=== PATIENT | female | born 1965 | race Caucasian/White ===

== ENCOUNTER 2022-03-08 08:40 | Inpatient (IN) | payer MEDICAID ==
[~2022-03-08] VITALS: Ht 177.8 cm; Wt 65.2 kg
[~2022-03-08 08:40] MED LIST: ALPR0.25 PO; CHOL20007 OR; CIME1TAB7 PO; DIGO0.12 PO; FERR-20 PO; FURO40TA4 PO; GABA300C10 PO; POTA-220 PO; POTA10TA51 PO; RIOC1TAB13 PO; WARF6TAB21 PO
[2022-03-08 09:41] LABS: Basophils # (auto) 0 10 ^3/uL (0-0.2); Eosinophils # (auto) 0 10 ^3/uL (0-0.8); Lymphocytes # (auto) 0.2 10 ^3/uL (0.4-5.4); Monocytes # (auto) 0.3 10 ^3/uL (0-1.3); Neutrophils # (auto) 2.1 10 ^3/uL (1.6-8.6); White Blood Cell 2.6 10^3/uL (4.4-10.8)
[2022-03-08 09:43] LABS: Eosinophils % (auto) 1.1 % (0.0-7.0); Hematocrit 39.7 % (36.0-46.0); Hemoglobin 13.2 g/dL (12.2-16.2); Lymphocytes % (auto) 6.5 % (10.0-50.0); Mean Corpuscular Hemoglobin 26.1 pg (28.0-32.0); Mean Corpuscular Hgb Conc. 33.3 g/dL (32.0-36.0); Mean Corpuscular Volume 78.3 fL (80.0-100.0); Monocytes % (auto) 10.8 % (0.0-12.0); Neutrophils % (auto) 80.6 % (37.0-80.0); Nucleated Red Blood Cells % 0.1 %; Red Blood Cells 5.07 10^6/uL (4.0-5.20); Red Cell Distribution Width 14.2 % (11.8-14.3)
[2022-03-08 10:01] LABS: Albumin 3.7 g/dL (3.4-5.0); Calcium 8.5 mg/dL (8.5-10.1); Magnesium 2.3 mg/dL (1.6-2.6); Potassium 3.6 mmol/L (3.5-5.1)
[2022-03-08 10:05] LABS: Bilirubin, Total 0.4 mg/dL (0.2-1.0); Total Protein 7.2 g/dL (6.4-8.2)
[2022-03-08] MEDS ORDERED: ACETAMINOPHEN 325 MG TAB PO ONE (11:30)
[2022-03-08] MEDS ORDERED: AZITHROMYCIN 250 MG TAB PO ONE (11:30)
[2022-03-08] MEDS ORDERED: DexAMETHasone SOD PHOS 10MG/1ML VIAL INJ IV ONE (11:30)
[2022-03-08] MEDS ORDERED: AMOXICILLIN/CLAVUL 875 MG TAB PO ONE (11:30)
[2022-03-08] MEDS ORDERED: MORPHINE SULFATE INJ 2 MG/ml SYRG IV PRN (13:45)
[2022-03-08] MEDS ORDERED: DOCUSATE SOD 100 MG CAP PO PRN (13:45)
[2022-03-08] MEDS ORDERED: NITROGLYCERIN 0.4 MG SL TAB SL PRN (13:45)
[2022-03-08] MEDS ORDERED: ONDANSETRON HCL 4 MG/2 ML VIAL IV PRN (13:45)
[2022-03-08] MEDS: SODIUM CHLOR 0.9% PF (SALINE LOCK) 10ML VIAL/SYR IV SCH ×2 (14:04→23:05)
[2022-03-08 14:18] LABS: INR 2.49 (0.9-1.15); Partial Thromboplastin Time 43.1 sec (24.6-33.4)
[2022-03-08] MEDS ORDERED: WARFARIN SODIUM 5 MG TAB PO ONE (17:00)
[2022-03-08] MEDS: ACETAMINOPHEN 325 MG TAB PO PRN (18:37)
[2022-03-08] MEDS ORDERED: SODIUM CHLORIDE 0.9% 250 ML IV ONE (20:45)
[2022-03-08] MEDS: RIOCIGUAT BASE PO SCH ×2 (22:00→23:05)
[2022-03-08] MEDS ORDERED: TADA20TA50 PO (23:12)
[2022-03-08] MEDS ORDERED: MACI1TAB2 PO (23:12)
[2022-03-09] MEDS: PHENYLEPHRINE IV 250 ML IV SCH ×3 (03:55→20:40)
[2022-03-09] MEDS: ACETAMINOPHEN 325 MG TAB PO PRN ×2 (04:07→13:51)
[2022-03-09] MEDS ORDERED: NOREPINEPHRINE 8 MG/250ML KIT 250 ML IV ONE (04:55)
[2022-03-09] MEDS: NOREPINEPHRINE 8 MG/250ML KIT 250 ML IV SCH (05:01)
[2022-03-09] MEDS: RIOCIGUAT BASE PO SCH ×3 (06:00→22:00)
[2022-03-09] MEDS: SODIUM CHLOR 0.9% PF (SALINE LOCK) 10ML VIAL/SYR IV SCH ×3 (06:09→22:09)
[2022-03-09 07:51] LABS: Hematocrit 40.1 % (36.0-46.0); Mean Corpuscular Hemoglobin 25.6 pg (28.0-32.0); Mean Corpuscular Hgb Conc. 32.4 g/dL (32.0-36.0); Red Blood Cells 5.08 10^6/uL (4.0-5.20); Red Cell Distribution Width 14.4 % (11.8-14.3); White Blood Cell 4.2 10^3/uL (4.4-10.8)
[2022-03-09 07:59] LABS: Band Neutrophils % (manual) 0; Basophils % (manual) 0 (0.0-2.0); Blast Cells 0; Eosinophils % (manual) 0 (0-7); Metamyelocytes % 0; Myelocytes % 0; Promyelocytes % 0; Reactive Lymphocytes 0
[2022-03-09 08:00] LABS: INR 2.91 (0.9-1.15); Partial Thromboplastin Time 45.2 sec (24.6-33.4)
[2022-03-09 08:03] LABS: Albumin 3.8 g/dL (3.4-5.0); BUN/Creatinine Ratio 24.3; Calcium 8.6 mg/dL (8.5-10.1); Potassium 3.6 mmol/L (3.5-5.1)
[2022-03-09 08:06] LABS: Bilirubin, Total 0.4 mg/dL (0.2-1.0); Total Protein 6.8 g/dL (6.4-8.2)
[2022-03-09 08:41] LABS: Lymphocytes % (manual) 17 (10.0-50.0); Monocytes % (manual) 13 (0-12)
[2022-03-09] MEDS: DOPamine 1600MCG/ML D5W 250 ML IV SCH (09:09)
[2022-03-09] MEDS: DIGOXIN 0.125 MG TAB PO SCH (09:22)
[2022-03-09] MEDS: AZITHROMYCIN 500MG/ 250ML 250 ML IV SCH (10:49)
[2022-03-09] MEDS ORDERED: SODIUM CHLORIDE 0.9% 1,000 ML IV ONE (13:00)
[2022-03-09] MEDS ORDERED: cefTRIAXone 1GM/50ML D5W 50 ML IV ONE (13:00)
[2022-03-09 13:45] LABS: Urine Bacteria NONE SEEN /hpf (None Seen); Urine Blood Negative /uL (Negative); Urine Hyaline Cast FEW /lpf (0 - 2); Urine Mucus FEW (None Seen); Urine Specific Gravity 1.031 (1.001-1.035); Urine WBC 1 /hpf (0 - 5)
[2022-03-09 13:51] LABS: Creatinine, Urine 195 mg/dL (30.0-125.0); Sodium Urine < 5 mmol/L (40-220)
[2022-03-09] MEDS ORDERED: WARFARIN SODIUM 2 MG TAB PO ONE (17:00)
[2022-03-10] VITALS (25 sets, daily range): BP systolic 80–139; BP diastolic 46–68
[2022-03-10] MEDS: PHENYLEPHRINE IV 250 ML IV SCH ×2 (05:00→13:20)
[2022-03-10] MEDS: RIOCIGUAT BASE PO SCH ×3 (06:00→21:03)
[2022-03-10 06:16] LABS: Basophils # (auto) 0 10 ^3/uL (0-0.2); Basophils % (auto) 0.3 % (0.0-2.0); Eosinophils # (auto) 0 10 ^3/uL (0-0.8); Eosinophils % (auto) 0.1 % (0.0-7.0); Hematocrit 37.1 % (36.0-46.0); Lymphocytes # (auto) 0.5 10 ^3/uL (0.4-5.4); Mean Corpuscular Hemoglobin 25.8 pg (28.0-32.0); Monocytes # (auto) 0.3 10 ^3/uL (0-1.3); Monocytes % (auto) 8.4 % (0.0-12.0); White Blood Cell 3.9 10^3/uL (4.4-10.8)
[2022-03-10 06:18] LABS: Hemoglobin 12.2 g/dL (12.2-16.2); Lymphocytes % (auto) 12.4 % (10.0-50.0); Mean Corpuscular Hgb Conc. 32.9 g/dL (32.0-36.0); Mean Corpuscular Volume 78.4 fL (80.0-100.0); Neutrophils # (auto) 3.1 10 ^3/uL (1.6-8.6); Neutrophils % (auto) 78.8 % (37.0-80.0); Nucleated Red Blood Cells % 0.2 %; Red Blood Cells 4.74 10^6/uL (4.0-5.20); Red Cell Distribution Width 14.4 % (11.8-14.3)
[2022-03-10 06:27] LABS: INR 3.22 (0.9-1.15); Partial Thromboplastin Time 47.3 sec (24.6-33.4)
[2022-03-10] MEDS: NOREPINEPHRINE 8 MG/250ML KIT 250 ML IV SCH ×2 (06:30→07:46)
[2022-03-10] MEDS: SODIUM CHLOR 0.9% PF (SALINE LOCK) 10ML VIAL/SYR IV SCH ×3 (06:31→21:03)
[2022-03-10 06:32] LABS: Calcium 7.5 mg/dL (8.5-10.1); Magnesium 1.9 mg/dL (1.6-2.6); Phosphorus 2.2 mg/dL (2.5-4.90); Potassium 3.9 mmol/L (3.5-5.1)
[2022-03-10] MEDS: DOPamine 1600MCG/ML D5W 250 ML IV SCH ×2 (07:15→22:35)
[2022-03-10] MEDS: cefTRIAXone 1GM/50ML D5W 50 ML IV SCH (09:25)
[2022-03-10] MEDS: DIGOXIN 0.125 MG TAB PO SCH (09:27)
[2022-03-10] MEDS: ACETAMINOPHEN 325 MG TAB PO PRN ×2 (09:28→19:49)
[2022-03-10] MEDS: AZITHROMYCIN 500MG/ 250ML 250 ML IV SCH (09:46)
[2022-03-11] VITALS (88 sets, daily range): BP systolic 80–130; BP diastolic 37–89
[2022-03-11 04:16] LABS: Basophils # (auto) 0 10 ^3/uL (0-0.2); Basophils % (auto) 0.4 % (0.0-2.0); Eosinophils # (auto) 0 10 ^3/uL (0-0.8); Eosinophils % (auto) 0.1 % (0.0-7.0); Hemoglobin 12.9 g/dL (12.2-16.2); Lymphocytes # (auto) 0.9 10 ^3/uL (0.4-5.4); Monocytes # (auto) 0.5 10 ^3/uL (0-1.3)
[2022-03-11 04:18] LABS: Hematocrit 39.4 % (36.0-46.0); Mean Corpuscular Hemoglobin 25.9 pg (28.0-32.0); Mean Corpuscular Hgb Conc. 32.8 g/dL (32.0-36.0); Mean Corpuscular Volume 78.9 fL (80.0-100.0); Monocytes % (auto) 14.2 % (0.0-12.0); Neutrophils # (auto) 2.2 10 ^3/uL (1.6-8.6); Neutrophils % (auto) 61.3 % (37.0-80.0); Nucleated Red Blood Cells % 0.2 %; Red Blood Cells 4.99 10^6/uL (4.0-5.20); Red Cell Distribution Width 14.7 % (11.8-14.3); White Blood Cell 3.6 10^3/uL (4.4-10.8)
[2022-03-11 04:30] LABS: INR 2.36 (0.9-1.15)
[2022-03-11 04:34] LABS: BUN/Creatinine Ratio 17.3; Potassium 3.8 mmol/L (3.5-5.1)
[2022-03-11] MEDS: RIOCIGUAT BASE PO SCH ×3 (06:00→21:48)
[2022-03-11] MEDS: SODIUM CHLOR 0.9% PF (SALINE LOCK) 10ML VIAL/SYR IV SCH ×3 (06:25→21:48)
[2022-03-11] MEDS: DOPamine 1600MCG/ML D5W 250 ML IV SCH ×2 (08:00→20:00)
[2022-03-11] MEDS: PHENYLEPHRINE IV 250 ML IV SCH ×3 (08:05→16:23)
[2022-03-11] MEDS: cefTRIAXone 1GM/50ML D5W 50 ML IV SCH (09:14)
[2022-03-11] MEDS: AZITHROMYCIN 500MG/ 250ML 250 ML IV SCH (10:09)
[2022-03-11] MEDS ORDERED: WARFARIN SODIUM 1 MG TAB PO ONE (17:00)
[2022-03-11] MEDS: NOREPINEPHRINE 8 MG/250ML KIT 250 ML IV SCH (21:00)
[2022-03-12] VITALS (82 sets, daily range): BP systolic 81–122; BP diastolic 43–78
[2022-03-12 04:17] LABS: Basophils # (auto) 0 10 ^3/uL (0-0.2); Eosinophils # (auto) 0 10 ^3/uL (0-0.8); Hemoglobin 12.8 g/dL (12.2-16.2); Lymphocytes # (auto) 0.7 10 ^3/uL (0.4-5.4); Mean Corpuscular Hemoglobin 26.1 pg (28.0-32.0); Mean Corpuscular Hgb Conc. 33.1 g/dL (32.0-36.0); Monocytes # (auto) 0.3 10 ^3/uL (0-1.3); Neutrophils # (auto) 1.9 10 ^3/uL (1.6-8.6); Nucleated Red Blood Cells % 0.1 %; White Blood Cell 2.9 10^3/uL (4.4-10.8)
[2022-03-12 04:19] LABS: Basophils % (auto) 0.3 % (0.0-2.0); Eosinophils % (auto) 0.7 % (0.0-7.0); Hematocrit 38.5 % (36.0-46.0); Lymphocytes % (auto) 23.4 % (10.0-50.0); Mean Corpuscular Volume 78.7 fL (80.0-100.0); Monocytes % (auto) 10.6 % (0.0-12.0); Red Cell Distribution Width 14.3 % (11.8-14.3)
[2022-03-12 05:08] LABS: INR 1.77 (0.9-1.15); Partial Thromboplastin Time 43.5 sec (24.6-33.4)
[2022-03-12 05:13] LABS: Calcium 7.7 mg/dL (8.5-10.1); Potassium 3.6 mmol/L (3.5-5.1)
[2022-03-12] MEDS: RIOCIGUAT BASE PO SCH (06:00)
[2022-03-12] MEDS: SODIUM CHLOR 0.9% PF (SALINE LOCK) 10ML VIAL/SYR IV SCH ×3 (06:12→22:00)
[2022-03-12] MEDS: cefTRIAXone 1GM/50ML D5W 50 ML IV SCH (08:56)
[2022-03-12] MEDS: AZITHROMYCIN 500MG/ 250ML 250 ML IV SCH ×2 (10:00→10:59)
[2022-03-12] MEDS: ACETAMINOPHEN 325 MG TAB PO PRN (12:42)
[2022-03-12] MEDS ORDERED: TADALAFIL 20 MG PO SCH (14:00)
[2022-03-12] MEDS ORDERED: OPSUMIT 10 MG PO SCH (14:00)
[2022-03-12] MEDS ORDERED: ALBUMIN 5% 250 ML IV ONE (14:15)
[2022-03-12] MEDS ORDERED: WARFARIN SODIUM 1 MG TAB PO ONE (17:00)
[2022-03-12] MEDS ORDERED: VANCOMYCIN PER PHARMACY 0 MG IV SCH (17:15)
[2022-03-12] MEDS: VANCOMYCIN 1GM/250ML 250 ML IV SCH (18:14)
[2022-03-12] MEDS: DOPamine 1600MCG/ML D5W 250 ML IV SCH (20:00)
[2022-03-12] MEDS ORDERED: APIXABAN 5 MG TAB PO SCH ×2 (22:00)
[2022-03-12] MEDS: APIXABAN 5 MG TAB PO SCH (22:00)
[2022-03-13] VITALS (79 sets, daily range): BP systolic 82–120; BP diastolic 44–80
[2022-03-13] MEDS: VANCOMYCIN 1GM/250ML 250 ML IV SCH ×2 (04:00→14:03)
[2022-03-13 04:25] LABS: Calcium 8.1 mg/dL (8.5-10.1); Potassium 3.9 mmol/L (3.5-5.1)
[2022-03-13 04:27] LABS: INR 1.52 (0.9-1.15); Partial Thromboplastin Time 44.1 sec (24.6-33.4)
[2022-03-13 04:28] LABS: BUN/Creatinine Ratio 21.3
[2022-03-13] MEDS: NOREPINEPHRINE 8 MG/250ML KIT 250 ML IV SCH (05:20)
[2022-03-13] MEDS: SODIUM CHLOR 0.9% PF (SALINE LOCK) 10ML VIAL/SYR IV SCH ×3 (06:00→22:59)
[2022-03-13] MEDS: PHENYLEPHRINE IV 250 ML IV SCH ×2 (07:46→14:03)
[2022-03-13] MEDS: cefTRIAXone 1GM/50ML D5W 50 ML IV SCH (09:23)
[2022-03-13] MEDS: APIXABAN 5 MG TAB PO SCH (09:24)
[2022-03-13] MEDS ORDERED: CHOLECALCIFEROL (VITD3) 2,000 UNIT CAP/TAB PO ONE (12:15)
[2022-03-13] MEDS: DOPamine 1600MCG/ML D5W 250 ML IV SCH (21:50)
[2022-03-13] MEDS: ENOXAPARIN SOD 60 MG/0.6 ML SYRINGE SC SCH (22:00)
[2022-03-13] MEDS: ATORVASTATIN 20 MG TAB PO SCH (22:59)
[2022-03-14] VITALS (70 sets, daily range): BP systolic 84–119; BP diastolic 43–67
[2022-03-14] MEDS: PHENYLEPHRINE IV 250 ML IV SCH ×2 (00:40→09:00)
[2022-03-14 03:48] LABS: BUN/Creatinine Ratio 24.7; Calcium 8.2 mg/dL (8.5-10.1); Potassium 4.1 mmol/L (3.5-5.1)
[2022-03-14] MEDS: NOREPINEPHRINE 8 MG/250ML KIT 250 ML IV SCH (05:00)
[2022-03-14] MEDS: SODIUM CHLOR 0.9% PF (SALINE LOCK) 10ML VIAL/SYR IV SCH ×3 (06:00→21:47)
[2022-03-14] MEDS: ENOXAPARIN SOD 60 MG/0.6 ML SYRINGE SC SCH (10:00)
[2022-03-14] MEDS: cefTRIAXone 1GM/50ML D5W 50 ML IV SCH (10:28)
[2022-03-14] MEDS: VANCOMYCIN 1GM/250ML 250 ML IV SCH ×2 (10:30)
[2022-03-14] MEDS: CHOLECALCIFEROL (VITD3) 2,000 UNIT CAP/TAB PO SCH (10:30)
[2022-03-14] MEDS: ATORVASTATIN 20 MG TAB PO SCH (21:47)
[2022-03-15] VITALS (75 sets, daily range): BP systolic 80–129; BP diastolic 28–82
[2022-03-15] MEDS: PHENYLEPHRINE IV 250 ML IV SCH ×4 (01:40→18:20)
[2022-03-15 04:00] LABS: Basophils # (auto) 0 10 ^3/uL (0-0.2); Basophils % (auto) 0.5 % (0.0-2.0); Eosinophils # (auto) 0.1 10 ^3/uL (0-0.8); Eosinophils % (auto) 6.4 % (0.0-7.0); Hemoglobin 13.1 g/dL (12.2-16.2); Lymphocytes # (auto) 0.8 10 ^3/uL (0.4-5.4); Lymphocytes % (auto) 35.9 % (10.0-50.0); Mean Corpuscular Hemoglobin 25.6 pg (28.0-32.0); Mean Corpuscular Hgb Conc. 32.8 g/dL (32.0-36.0); Mean Corpuscular Volume 78.1 fL (80.0-100.0); Monocytes # (auto) 0.4 10 ^3/uL (0-1.3); Monocytes % (auto) 16.2 % (0.0-12.0); Neutrophils # (auto) 0.9 10 ^3/uL (1.6-8.6); Nucleated Red Blood Cells % 0.1 %; Red Blood Cells 5.12 10^6/uL (4.0-5.20); Red Cell Distribution Width 14.2 % (11.8-14.3); White Blood Cell 2.3 10^3/uL (4.4-10.8)
[2022-03-15 04:19] LABS: BUN/Creatinine Ratio 27.4; Calcium 8.3 mg/dL (8.5-10.1)
[2022-03-15] MEDS: NOREPINEPHRINE 8 MG/250ML KIT 250 ML IV SCH (05:00)
[2022-03-15] MEDS: SODIUM CHLOR 0.9% PF (SALINE LOCK) 10ML VIAL/SYR IV SCH ×3 (06:00→22:00)
[2022-03-15] MEDS: cefTRIAXone 1GM/50ML D5W 50 ML IV SCH (09:34)
[2022-03-15] MEDS: DOPamine 1600MCG/ML D5W 250 ML IV SCH (09:34)
[2022-03-15] MEDS: CHOLECALCIFEROL (VITD3) 2,000 UNIT CAP/TAB PO SCH (09:35)
[2022-03-15] MEDS ORDERED: fentaNYL CITRATE 100 MCG/2 ML VL ONE (12:57)
[2022-03-15] MEDS ORDERED: VANCOMYCIN HCL 1000 MG VL ONE (12:57)
[2022-03-15] MEDS ORDERED: MIDAZOLAM HCL 2MG/2ML 2ml VIAL (1mg/ml) ONE (12:58)
[2022-03-15] MEDS ORDERED: LIDOCAINE 2%HCL (LOCAL ANESTH.) INJ 20ML MDV ONE ×2 (12:58→13:46)
[2022-03-15] MEDS ORDERED: VANCOMYCIN 1GM/250ML 250 ML IV ONE (12:58)
[2022-03-15] MEDS ORDERED: DexAMETHasone SOD PHOS 10MG/1ML VIAL INJ IV ONE (14:15)
[2022-03-15] MEDS: ATORVASTATIN 20 MG TAB PO SCH (22:00)
[2022-03-16] VITALS (39 sets, daily range): BP systolic 75–114; BP diastolic 40–75
[2022-03-16] MEDS: PHENYLEPHRINE IV 250 ML IV SCH ×2 (02:40→11:00)
[2022-03-16 04:34] LABS: Basophils # (auto) 0 10 ^3/uL (0-0.2); Basophils % (auto) 0.2 % (0.0-2.0); Eosinophils # (auto) 0 10 ^3/uL (0-0.8); Eosinophils % (auto) 0.1 % (0.0-7.0); Hematocrit 39.6 % (36.0-46.0); Hemoglobin 12.9 g/dL (12.2-16.2); Lymphocytes # (auto) 0.4 10 ^3/uL (0.4-5.4); Lymphocytes % (auto) 19.7 % (10.0-50.0); Mean Corpuscular Hemoglobin 25.4 pg (28.0-32.0); Mean Corpuscular Hgb Conc. 32.6 g/dL (32.0-36.0); Monocytes # (auto) 0.2 10 ^3/uL (0-1.3); Monocytes % (auto) 10.9 % (0.0-12.0); Neutrophils # (auto) 1.4 10 ^3/uL (1.6-8.6); Neutrophils % (auto) 69.1 % (37.0-80.0); Nucleated Red Blood Cells % 0.4 %; Red Blood Cells 5.07 10^6/uL (4.0-5.20); Red Cell Distribution Width 13.8 % (11.8-14.3); White Blood Cell 2.1 10^3/uL (4.4-10.8)
[2022-03-16 04:50] LABS: Calcium 8.7 mg/dL (8.5-10.1); Potassium 4.1 mmol/L (3.5-5.1)
[2022-03-16] MEDS: SODIUM CHLOR 0.9% PF (SALINE LOCK) 10ML VIAL/SYR IV SCH ×2 (05:45→13:47)
[2022-03-16] MEDS ORDERED: DexAMETHasone SOD PHOS 10MG/1ML VIAL INJ IV SCH (10:00)
[2022-03-16] MEDS: CHOLECALCIFEROL (VITD3) 2,000 UNIT CAP/TAB PO SCH (10:46)
[2022-03-16] MEDS: cefTRIAXone 1GM/50ML D5W 50 ML IV SCH (10:48)
[2022-03-16] MEDS ORDERED: DEX4T PO (11:14)
[2022-03-16] MEDS ORDERED: APIX5TAB PO (11:14)
[2022-03-16] MEDS ORDERED: LEVO750T64 PO (11:23)
[2022-03-16] MEDS ORDERED: APIXABAN 5 MG TAB PO SCH (22:00)
== END 2022-03-16 15:24 | disposition home or self-care (01) | DRG 710 ==
LOC: EDBD 08:40 → ER 08:40 → TELE 13:41 → TELE-WESTW 23:28 → TELE 03-09 00:36 → ICU WEST 03-10 16:48
PROVIDERS: ADMIT Nurse Practitioner Family; ATTEND Internal Medicine Pulmonary Disease
PROC: 02HK3JZ Insertion of Pacemaker Lead into Right Ventricle, Percutaneous Approach (ICD-10-PCS; principal; 2022-03-15)
PROC: 0JH606Z Insertion of Pacemaker, Dual Chamber into Chest Subcutaneous Tissue and Fascia, Open Approach (ICD-10-PCS; 2022-03-15)
PROC: 02H63JZ Insertion of Pacemaker Lead into Right Atrium, Percutaneous Approach (ICD-10-PCS; 2022-03-15)
DX: A41.89 Other specified sepsis (principal); J96.01 Acute respiratory failure with hypoxia; J12.82 Pneumonia due to coronavirus disease 2019; R65.21 Severe sepsis with septic shock; U07.1 COVID-19; D70.9 Neutropenia, unspecified; I13.0 Hypertensive heart and chronic kidney disease with heart failure and stage 1 through stage 4 chronic kidney disease, or unspecified chronic kidney disease; I50.9 Heart failure, unspecified; E87.2 Acidosis; I27.20 Pulmonary hypertension, unspecified; N17.9 Acute kidney failure, unspecified; I49.5 Sick sinus syndrome; B34.9 Viral infection, unspecified; I48.91 Unspecified atrial fibrillation; J98.4 Other disorders of lung; N18.31 Chronic kidney disease, stage 3a; I31.3 Pericardial effusion (noninflammatory); Z79.899 Other long term (current) drug therapy; Z83.3 Family history of diabetes mellitus; Z86.711 Personal history of pulmonary embolism; Z95.0 Presence of cardiac pacemaker; Z90.49 Acquired absence of other specified parts of digestive tract
CPT/HCPCS: 33208; 36415; 36600; 71045; 71250; 76775; 80048; 80053; 80162; 80202; 81001; 82533; 82570; 82805; 83735; 83880; 84100; 84156; 84300; 84439; 84443; 84484; 85007; 85025; 85027; 85379; 85610; 85730; 86141; 86850; 86900; 86901; 87040; 87070; 87077; 87081; 87186; 87205; 93005; 93306; 96361; 96374; 99152; 99153; C1785; G0378; J0696; J1100; J2250

== ENCOUNTER 2022-08-22 17:56 | Emergency (ER) | payer MEDICAID ==
[~2022-08-22] VITALS: Ht 165.1 cm; Wt 59.0 kg
[~2022-08-22 17:56] MED LIST changes: -ALPR0.25 PO; +APIX5TAB PO; -CIME1TAB7 PO; +DEX4T PO; -GABA300C10 PO; +LEVO750T64 PO; +MACI1TAB2 PO; -POTA10TA51 PO; +TADA20TA50 PO; -WARF6TAB21 PO
[2022-08-22 21:21] LABS: Basophils # (auto) 0 10 ^3/uL (0-0.2); Basophils % (auto) 0.9 % (0.0-2.0); Eosinophils # (auto) 0.2 10 ^3/uL (0-0.8); Hematocrit 40.8 % (36.0-46.0); Hemoglobin 13.5 g/dL (12.2-16.2); Lymphocytes # (auto) 1.3 10 ^3/uL (0.4-5.4); Lymphocytes % (auto) 27.5 % (10.0-50.0); Mean Corpuscular Hemoglobin 25.7 pg (28.0-32.0); Mean Corpuscular Hgb Conc. 33.1 g/dL (32.0-36.0); Mean Corpuscular Volume 77.7 fL (80.0-100.0); Monocytes # (auto) 0.3 10 ^3/uL (0-1.3); Monocytes % (auto) 5.7 % (0.0-12.0); Neutrophils % (auto) 60.9 % (37.0-80.0); Nucleated Red Blood Cells % 0.2 %; Red Blood Cells 5.25 10^6/uL (4.0-5.20); Red Cell Distribution Width 14.8 % (11.8-14.3); White Blood Cell 4.9 10^3/uL (4.4-10.8)
[2022-08-22 21:36] LABS: INR 0.97 (0.9-1.15); Partial Thromboplastin Time 31.3 sec (24.6-33.4)
[2022-08-22 21:39] LABS: Albumin 4.1 g/dL (3.4-5.0); Calcium 8.8 mg/dL (8.5-10.1)
[2022-08-22 21:42] LABS: BUN/Creatinine Ratio 14.3; Bilirubin, Total 0.5 mg/dL (0.2-1.0)
[2022-08-23 00:36] VITALS: BP 107/73
== END 2022-08-23 00:37 | disposition home or self-care (01) ==
LOC: EDBD 17:56 → ER 17:56
DX: M79.605 Pain in left leg (principal); M79.661 Pain in right lower leg; I48.91 Unspecified atrial fibrillation; I11.0 Hypertensive heart disease with heart failure; I50.9 Heart failure, unspecified; Z79.899 Other long term (current) drug therapy; Z98.890 Other specified postprocedural states
CPT/HCPCS: 36415; 80053; 83690; 84484; 85025; 85610; 85730; 93970

== ENCOUNTER 2023-07-07 19:24 | Inpatient (IN) | payer MEDICAID ==
[~2023-07-07] VITALS: Ht 157.5 cm; Wt 64.4 kg
[~2023-07-07 19:24] MED LIST changes: -FERR-20 PO; +FERR325T24 PO; +LEVO750T40 PO; -LEVO750T64 PO; -TADA20TA50 PO; +TADA20TA52 PO
[2023-07-07 19:56] LABS: Base Excess -2.7 mmol/L (-2.0-2.0)
[2023-07-07 20:02] LABS: Basophils # (auto) 0 10 ^3/uL (0-0.2); Basophils % (auto) 0.6 % (0.0-2.0); Eosinophils # (auto) 0 10 ^3/uL (0-0.8); Eosinophils % (auto) 0.6 % (0.0-7.0); Hemoglobin 12.6 g/dL (12.2-16.2); Mean Corpuscular Volume 79.4 fL (80.0-100.0); Monocytes # (auto) 0.4 10 ^3/uL (0-1.3); Neutrophils # (auto) 3.1 10 ^3/uL (1.6-8.6)
[2023-07-07 20:04] LABS: Hematocrit 38.9 % (36.0-46.0); Lymphocytes # (auto) 0.3 10 ^3/uL (0.4-5.4); Lymphocytes % (auto) 6.9 % (10.0-50.0); Mean Corpuscular Hemoglobin 25.7 pg (28.0-32.0); Mean Corpuscular Hgb Conc. 32.4 g/dL (32.0-36.0); Monocytes % (auto) 10.5 % (0.0-12.0); Neutrophils % (auto) 81.4 % (37.0-80.0); Nucleated Red Blood Cells % 1.4 %; Red Cell Distribution Width 14.7 % (11.8-14.3); White Blood Cell 3.8 10^3/uL (4.4-10.8)
[2023-07-07 20:15] VITALS: PULSE 86; RESP 14; O2SAT 95
[2023-07-07 20:28] LABS: Alanine Aminotransferase 10 U/L (7-40); Albumin 4.3 g/dL (3.2-4.8); Alkaline Phosphatase 53 U/L (46-116); Anion Gap 10 (5-15); BUN/Creatinine Ratio 12.8 (10.0-20.0); Bilirubin, Total 0.6 mg/dL (0.2-1.0); Blood Urea Nitrogen 14 mg/dL (9-23); Calcium 8.9 mg/dL (8.7-10.4); Carbon Dioxide 23 mmol/L (20-30); Chloride 109 mmol/L (98-107); Glucose 112 mg/dL (74-106); Potassium 3.6 mmol/L (3.5-5.1); Sodium 142 mmol/L (136-145); Total Protein 6.3 g/dL (5.7-8.2)
[2023-07-07 20:31] LABS: INR 1.04 (0.9-1.15); Prothrombin Time 10.9 sec (9.3-11.8)
[2023-07-07] MEDS ORDERED: ACETAMINOPHEN 325 MG TAB PO ONE (20:45)
[2023-07-07 20:51] LABS: Aspartate Aminotransferase 11 U/L (13-40)
[2023-07-08] VITALS (7 sets, daily range): BP systolic 96; BP diastolic 55; PULSE 24–86; RESP 15–24; TEMP 99.3; O2SAT 85–99
[2023-07-08 01:17] LABS: COVID19 ANTIGEN SOFIA FIA NEGATIVE (NEGATIVE); Rapid Influenza A Negative (Negative); Rapid Influenza B Negative (Negative)
[2023-07-08] MEDS ORDERED: ALBUTEROL SULF 2.5 MG/0.5ML(0.5%) NEB SOLN NEB PRN (02:15)
[2023-07-08] MEDS ORDERED: IPRATROPIUM BROM 0.5 MG/2.5ML INH SOL NEB PRN (02:15)
[2023-07-08] MEDS ORDERED: ONDANSETRON HCL 4 MG/2 ML VIAL IV PRN (02:30)
[2023-07-08] MEDS ORDERED: HYDROcodone-ACET 5/325MG TAB PO PRN (02:30)
[2023-07-08] MEDS ORDERED: ACETAMINOPHEN 325 MG TAB PO PRN (02:30)
[2023-07-08] MEDS ORDERED: DOCUSATE SOD 100 MG CAP PO PRN (02:30)
[2023-07-08] MEDS ORDERED: MAALOX PLUS or MAALOX 30 ML PO PRN (02:30)
[2023-07-08] MEDS ORDERED: MORPHINE SULFATE INJ 2 MG/ml SYRG IV PRN (02:30)
[2023-07-08] MEDS ORDERED: ACETAMINOPHEN 325 MG TAB PO ONE (02:55)
[2023-07-08] MEDS: SODIUM CHLORIDE 0.9% 1,000 ML IV SCH ×2 (03:12→16:34)
[2023-07-08] MEDS: cefTRIAXone 1GM/50ML D5W 50 ML IV SCH (03:18)
[2023-07-08] MEDS: methylPREDNISolone SOD SUCC 125 MG/2 ML VL IV SCH (03:19)
[2023-07-08] MEDS: AZITHROMYCIN 500MG/ 250ML 250 ML IV SCH (03:53)
[2023-07-08] MEDS ORDERED: NOREPINEPHRINE 8 MG/250ML KIT 250 ML IV ONE (05:43)
[2023-07-08] MEDS ORDERED: NOREPINEPHRINE 8 MG/250ML KIT 250 ML IV SCH (05:45)
[2023-07-08] MEDS: HEPARIN SODIUM (PORCINE) 5000 UNITS/ML 1ML VIAL SC SCH ×2 (09:53→22:00)
[2023-07-08] MEDS: LORazepam 0.5 MG TAB PO PRN (16:58)
[2023-07-08] MEDS ORDERED: SODIUM CHLORIDE 0.9% 1,000 ML IV ONE (23:30)
[2023-07-09] VITALS (9 sets, daily range): BP systolic 88–109; BP diastolic 44–60; PULSE 61–98; RESP 16–22; O2SAT 92–99
[2023-07-09 05:55] LABS: Base Excess -3.9 mmol/L (-2.0-2.0)
[2023-07-09] MEDS: SODIUM CHLORIDE 0.9% 1,000 ML IV SCH ×2 (07:10→21:09)
[2023-07-09] MEDS ORDERED: SIMV20TA20 PO (08:31)
[2023-07-09] MEDS ORDERED: GABA-339 PO ×2 (08:31→21:20)
[2023-07-09] MEDS ORDERED: PANT40TA2 PO (08:31)
[2023-07-09] MEDS: cefTRIAXone 1GM/50ML D5W 50 ML IV SCH (09:46)
[2023-07-09] MEDS: methylPREDNISolone SOD SUCC 125 MG/2 ML VL IV SCH (09:51)
[2023-07-09] MEDS: AZITHROMYCIN 500MG/ 250ML 250 ML IV SCH (09:52)
[2023-07-09] MEDS: HEPARIN SODIUM (PORCINE) 5000 UNITS/ML 1ML VIAL SC SCH ×2 (09:52→22:47)
[2023-07-09 18:36] LABS: Urine Bacteria NONE SEEN /hpf (None Seen); Urine Blood Negative /uL (Negative); Urine Clarity Clear (Clear); Urine Color Yellow (Yellow); Urine Protein, UAD TRACE (Negative); Urine Specific Gravity 1.019 (1.001-1.035); Urine Urobilinogen Normal (Negative); Urine WBC 1 /hpf (0 - 5)
[2023-07-09] MEDS ORDERED: GABA-1250 PO (21:27)
[2023-07-10] VITALS (7 sets, daily range): BP systolic 126–149; BP diastolic 64–76; PULSE 60–76; RESP 14–18; O2SAT 91–99
[2023-07-10] MEDS: cefTRIAXone 1GM/50ML D5W 50 ML IV SCH (09:13)
[2023-07-10] MEDS: methylPREDNISolone SOD SUCC 125 MG/2 ML VL IV SCH (10:26)
[2023-07-10] MEDS: HEPARIN SODIUM (PORCINE) 5000 UNITS/ML 1ML VIAL SC SCH ×2 (10:28→22:34)
[2023-07-10] MEDS: AZITHROMYCIN 500MG/ 250ML 250 ML IV SCH (10:29)
[2023-07-10] MEDS: SODIUM CHLORIDE 0.9% 1,000 ML IV SCH (11:38)
[2023-07-11] MEDS: SODIUM CHLORIDE 0.9% 1,000 ML IV SCH ×2 (02:32→16:16)
[2023-07-11 08:00] VITALS: PULSE 89; RESP 19; O2SAT 96
[2023-07-11 08:47] LABS: Rapid Influenza A Negative (Negative); Rapid Influenza B Negative (Negative)
[2023-07-11] MEDS: methylPREDNISolone SOD SUCC 125 MG/2 ML VL IV SCH (08:47)
[2023-07-11] MEDS: FUROSEMIDE 40 MG/4 ML VIAL IV SCH (08:48)
[2023-07-11] MEDS: HEPARIN SODIUM (PORCINE) 5000 UNITS/ML 1ML VIAL SC SCH (08:48)
[2023-07-11] MEDS: cefTRIAXone 1GM/50ML D5W 50 ML IV SCH (08:49)
[2023-07-11] MEDS: AZITHROMYCIN 250 MG TAB PO SCH (08:49)
[2023-07-11 08:59] LABS: COVID19 ANTIGEN SOFIA FIA POSITIVE (NEGATIVE)
[2023-07-11 09:40] VITALS: O2SAT 95
[2023-07-11] MEDS: FUROSEMIDE 40 MG TAB PO SCH (10:00)
[2023-07-11] MEDS: PANTOPRAZOLE 40 MG TAB PO SCH (10:00)
[2023-07-11] MEDS: APIXABAN 5 MG TAB PO SCH ×2 (10:00→21:17)
[2023-07-11 10:12] LABS: Chloride 110 mmol/L (98-107); Potassium 3.1 mmol/L (3.5-5.1); Sodium 144 mmol/L (136-145)
[2023-07-11 10:13] LABS: Anion Gap 8 (5-15); Calcium 9.2 mg/dL (8.5-10.1); Carbon Dioxide 26 mmol/L (20-30)
[2023-07-11 10:18] LABS: BUN/Creatinine Ratio 17.7 (10.0-20.0); Blood Urea Nitrogen 17 mg/dL (9-23); Glucose 77 mg/dL (74-106)
[2023-07-11 10:35] VITALS: BP 99/55; PULSE 60; RESP 19; O2SAT 96
[2023-07-11] MEDS: POTASSIUM CHL 20 Meq TABLET PO SCH (10:35)
[2023-07-11] MEDS: GABAPENTIN 300 MG CAP PO SCH ×2 (10:35→21:16)
[2023-07-11] MEDS: LORazepam 0.5 MG TAB PO PRN (10:35)
[2023-07-11 20:00] VITALS: PULSE 84; RESP 16; O2SAT 94
[2023-07-11 20:40] VITALS: O2SAT 92
[2023-07-12] MEDS ORDERED: SODIUM CHLORIDE 0.9% 1,000 ML IV SCH (04:30)
[2023-07-12 05:14] LABS: Basophils # (auto) 0 10 ^3/uL (0-0.2); Basophils % (auto) 0.1 % (0.0-2.0); Eosinophils # (auto) 0 10 ^3/uL (0-0.8); Eosinophils % (auto) 0.4 % (0.0-7.0); Hematocrit 33.6 % (36.0-46.0); Hemoglobin 10.8 g/dL (12.2-16.2); Lymphocytes # (auto) 1.1 10 ^3/uL (0.4-5.4); Lymphocytes % (auto) 32.7 % (10.0-50.0); Mean Corpuscular Hemoglobin 25.8 pg (28.0-32.0); Mean Corpuscular Hgb Conc. 32.2 g/dL (32.0-36.0); Mean Corpuscular Volume 80.2 fL (80.0-100.0); Monocytes # (auto) 0.4 10 ^3/uL (0-1.3); Monocytes % (auto) 11.6 % (0.0-12.0); Neutrophils # (auto) 1.9 10 ^3/uL (1.6-8.6); Neutrophils % (auto) 55.2 % (37.0-80.0); Nucleated Red Blood Cells % 0.2 %; Red Blood Cells 4.19 10^6/uL (4.0-5.20); Red Cell Distribution Width 14.8 % (11.8-14.3); White Blood Cell 3.5 10^3/uL (4.4-10.8)
[2023-07-12 05:17] LABS: Chloride 113 mmol/L (98-107); Potassium 3.6 mmol/L (3.5-5.1); Sodium 143 mmol/L (136-145)
[2023-07-12 05:18] LABS: Anion Gap 8 (5-15); Calcium 8.4 mg/dL (8.5-10.1); Carbon Dioxide 22 mmol/L (20-30)
[2023-07-12 05:23] LABS: BUN/Creatinine Ratio 18.7 (10.0-20.0); Blood Urea Nitrogen 17 mg/dL (9-23); Glucose 82 mg/dL (74-106)
[2023-07-12 07:26] VITALS: O2SAT 96
[2023-07-12 07:50] VITALS: PULSE 83; RESP 20; O2SAT 97
[2023-07-12] MEDS: FUROSEMIDE 40 MG/4 ML VIAL IV SCH (09:57)
[2023-07-12] MEDS: FUROSEMIDE 40 MG TAB PO SCH (10:00)
[2023-07-12] MEDS: APIXABAN 5 MG TAB PO SCH ×2 (10:00→22:04)
[2023-07-12] MEDS: POTASSIUM CHL 20 Meq TABLET PO SCH (10:11)
[2023-07-12] MEDS: PANTOPRAZOLE 40 MG TAB PO SCH (10:11)
[2023-07-12] MEDS: methylPREDNISolone SOD SUCC 125 MG/2 ML VL IV SCH (10:11)
[2023-07-12] MEDS: cefTRIAXone 1GM/50ML D5W 50 ML IV SCH (10:11)
[2023-07-12] MEDS: GABAPENTIN 300 MG CAP PO SCH ×2 (10:11→22:04)
[2023-07-12] MEDS ORDERED: ZINC SULFATE 220mg CAP or TAB PO ONE (10:45)
[2023-07-12] MEDS ORDERED: CHOLECALCIFEROL (VITD3) 2,000 UNIT CAP/TAB PO ONE (10:45)
[2023-07-12] MEDS: AZITHROMYCIN 250 MG TAB PO SCH (10:54)
[2023-07-12] MEDS ORDERED: DexAMETHasone SOD PHOS 10MG/1ML VIAL INJ IV ONE (11:00)
[2023-07-12] MEDS ORDERED: REMDESIVIR PER PHARMACY 0 ML IV SCH (11:00)
[2023-07-12 11:35] VITALS: O2SAT 96
[2023-07-12 12:07] LABS: Magnesium 1.8 mg/dL (1.6-2.6)
[2023-07-12] MEDS ORDERED: REMDESIVIR 200 MG in NS 210ml LOADING DOSE ADULT IV ONE (12:15)
[2023-07-12 19:30] VITALS: PULSE 60; RESP 17; O2SAT 95
[2023-07-12 20:15] VITALS: O2SAT 95
[2023-07-12] MEDS: ASCORBIC ACID 500 MG TAB PO SCH (22:04)
[2023-07-12] MEDS ORDERED: ALBUTEROL SULF HFA 90MCG INH 200DOSE IN PRN (22:15)
[2023-07-13] VITALS (23 sets, daily range): BP systolic 87–128; BP diastolic 41–63; PULSE 60–85; RESP 12–25; TEMP 97.8–98.8; O2SAT 89–99
[2023-07-13] MEDS: LORazepam 0.5 MG TAB PO PRN (01:37)
[2023-07-13 05:49] LABS: Basophils # (auto) 0 10 ^3/uL (0-0.2); Basophils % (auto) 0.1 % (0.0-2.0); Eosinophils # (auto) 0 10 ^3/uL (0-0.8); Eosinophils % (auto) 0.2 % (0.0-7.0); Monocytes # (auto) 0.4 10 ^3/uL (0-1.3); Nucleated Red Blood Cells % 0.1 %
[2023-07-13 05:52] LABS: Hematocrit 32.8 % (36.0-46.0); Hemoglobin 10.7 g/dL (12.2-16.2); Lymphocytes # (auto) 0.9 10 ^3/uL (0.4-5.4); Lymphocytes % (auto) 23.5 % (10.0-50.0); Mean Corpuscular Hemoglobin 25.8 pg (28.0-32.0); Mean Corpuscular Hgb Conc. 32.6 g/dL (32.0-36.0); Mean Corpuscular Volume 78.9 fL (80.0-100.0); Monocytes % (auto) 10.9 % (0.0-12.0); Neutrophils # (auto) 2.5 10 ^3/uL (1.6-8.6); Neutrophils % (auto) 65.3 % (37.0-80.0); Red Blood Cells 4.16 10^6/uL (4.0-5.20); Red Cell Distribution Width 14.1 % (11.8-14.3); White Blood Cell 3.8 10^3/uL (4.4-10.8)
[2023-07-13 06:03] LABS: Alanine Aminotransferase 28 U/L (7-40); Alkaline Phosphatase 40 U/L (46-116); Anion Gap 8 (5-15); BUN/Creatinine Ratio 16.7 (10.0-20.0); Blood Urea Nitrogen 13 mg/dL (9-23); Calcium 8.5 mg/dL (8.5-10.1); Carbon Dioxide 21 mmol/L (20-30); Chloride 113 mmol/L (98-107); Glucose 87 mg/dL (74-106); Potassium 3.6 mmol/L (3.5-5.1); Sodium 142 mmol/L (136-145)
[2023-07-13 06:04] LABS: Albumin 3.3 g/dL (3.2-4.8); Aspartate Aminotransferase 26 U/L (13-40); Bilirubin, Direct < 0.1 mg/dL (<0.3); Bilirubin, Total 0.3 mg/dL (0.2-1.0)
[2023-07-13 06:22] LABS: Magnesium 1.8 mg/dL (1.6-2.6)
[2023-07-13] MEDS: cefTRIAXone 1GM/50ML D5W 50 ML IV SCH (08:44)
[2023-07-13] MEDS: GABAPENTIN 300 MG CAP PO SCH ×2 (09:31→21:36)
[2023-07-13] MEDS: FUROSEMIDE 40 MG TAB PO SCH (09:31)
[2023-07-13] MEDS: DexAMETHasone SOD PHOS 10MG/1ML VIAL INJ IV SCH (09:31)
[2023-07-13] MEDS: POTASSIUM CHL 20 Meq TABLET PO SCH (09:32)
[2023-07-13] MEDS: ASCORBIC ACID 500 MG TAB PO SCH ×2 (09:32→21:36)
[2023-07-13] MEDS: ZINC SULFATE 220mg CAP or TAB PO SCH (09:32)
[2023-07-13] MEDS: PANTOPRAZOLE 40 MG TAB PO SCH (09:32)
[2023-07-13] MEDS: APIXABAN 5 MG TAB PO SCH ×2 (09:32→21:36)
[2023-07-13] MEDS: CHOLECALCIFEROL (VITD3) 2,000 UNIT CAP/TAB PO SCH (09:32)
[2023-07-13] MEDS: AZITHROMYCIN 250 MG TAB PO SCH (09:32)
[2023-07-13] MEDS: SELEXIPAG PO SCH ×2 (10:23→21:36)
[2023-07-13] MEDS ORDERED: IOHEXOL 350 MG/ML 100ML IJ ONE (11:48)
[2023-07-13] MEDS: REMDESIVIR 100mg 100 MG in SODIUM CHL 0.9% 230 ML IV SCH (14:58)
[2023-07-13] MEDS: OPSUMIT 10 MG PO SCH (21:35)
[2023-07-13] MEDS: TADALAFIL 20 MG PO SCH (21:35)
[2023-07-14] VITALS (28 sets, daily range): BP systolic 81–127; BP diastolic 40–74; PULSE 60–105; RESP 12–21; TEMP 97.3–98.8; O2SAT 87–100
[2023-07-14] MEDS ORDERED: SODIUM CHLORIDE 0.9% 1,000 ML IV SCH (00:15)
[2023-07-14 05:13] LABS: Basophils # (auto) 0 10 ^3/uL (0-0.2); Basophils % (auto) 0.2 % (0.0-2.0); Eosinophils # (auto) 0 10 ^3/uL (0-0.8); Hemoglobin 10.9 g/dL (12.2-16.2)
[2023-07-14 05:16] LABS: Hematocrit 36.1 % (36.0-46.0); Lymphocytes % (auto) 8.9 % (10.0-50.0); Mean Corpuscular Hemoglobin 23.9 pg (28.0-32.0); Mean Corpuscular Hgb Conc. 30.3 g/dL (32.0-36.0); Mean Corpuscular Volume 78.9 fL (80.0-100.0); Monocytes # (auto) 0.9 10 ^3/uL (0-1.3); Monocytes % (auto) 7.9 % (0.0-12.0); Neutrophils # (auto) 9.5 10 ^3/uL (1.6-8.6); Red Blood Cells 4.58 10^6/uL (4.0-5.20); White Blood Cell 11.4 10^3/uL (4.4-10.8)
[2023-07-14 05:24] LABS: Red Cell Distribution Width 20.4 % (11.8-14.3)
[2023-07-14 05:26] LABS: Alanine Aminotransferase 12 U/L (7-40); Albumin 3.7 g/dL (3.2-4.8); Alkaline Phosphatase 61 U/L (46-116); Anion Gap 12 (5-15); Aspartate Aminotransferase 27 U/L (13-40); BUN/Creatinine Ratio 13.2 (10.0-20.0); Blood Urea Nitrogen 12 mg/dL (9-23); Calcium 8.7 mg/dL (8.5-10.1); Carbon Dioxide 21 mmol/L (20-30); Chloride 108 mmol/L (98-107); Glucose 180 mg/dL (74-106); Potassium 3.7 mmol/L (3.5-5.1); Sodium 141 mmol/L (136-145)
[2023-07-14 05:27] LABS: Bilirubin, Direct 0.2 mg/dL (<0.3); Bilirubin, Total 0.4 mg/dL (0.2-1.0)
[2023-07-14] MEDS: cefTRIAXone 1GM/50ML D5W 50 ML IV SCH (09:48)
[2023-07-14] MEDS: ZINC SULFATE 220mg CAP or TAB PO SCH (09:51)
[2023-07-14] MEDS: PANTOPRAZOLE 40 MG TAB PO SCH (09:51)
[2023-07-14] MEDS: CHOLECALCIFEROL (VITD3) 2,000 UNIT CAP/TAB PO SCH (09:51)
[2023-07-14] MEDS: ASCORBIC ACID 500 MG TAB PO SCH ×2 (09:51→21:07)
[2023-07-14] MEDS: GABAPENTIN 300 MG CAP PO SCH ×2 (09:52→21:07)
[2023-07-14] MEDS: FUROSEMIDE 40 MG TAB PO SCH (09:52)
[2023-07-14] MEDS: APIXABAN 5 MG TAB PO SCH ×2 (09:52→21:07)
[2023-07-14] MEDS: SELEXIPAG PO SCH ×2 (09:54→21:06)
[2023-07-14] MEDS: POTASSIUM CHL 20 Meq TABLET PO SCH (09:54)
[2023-07-14] MEDS: DexAMETHasone SOD PHOS 10MG/1ML VIAL INJ IV SCH (09:57)
[2023-07-14] MEDS: REMDESIVIR 100mg 100 MG in SODIUM CHL 0.9% 230 ML IV SCH (15:39)
[2023-07-14] MEDS: TADALAFIL 20 MG PO SCH (21:06)
[2023-07-14] MEDS: OPSUMIT 10 MG PO SCH (21:06)
[2023-07-15] VITALS (32 sets, daily range): BP systolic 85–110; BP diastolic 46–64; PULSE 60–93; RESP 9–28; TEMP 97.6–98.3; O2SAT 86–99
[2023-07-15 06:11] LABS: Basophils # (auto) 0 10 ^3/uL (0-0.2); Basophils % (auto) 0.2 % (0.0-2.0); Eosinophils # (auto) 0.1 10 ^3/uL (0-0.8); Mean Corpuscular Hemoglobin 25.4 pg (28.0-32.0); Monocytes # (auto) 0.5 10 ^3/uL (0-1.3); Red Cell Distribution Width 14.7 % (11.8-14.3)
[2023-07-15 06:15] LABS: Eosinophils % (auto) 1.4 % (0.0-7.0); Hemoglobin 11.6 g/dL (12.2-16.2); Lymphocytes # (auto) 1.5 10 ^3/uL (0.4-5.4); Lymphocytes % (auto) 30.4 % (10.0-50.0); Mean Corpuscular Hgb Conc. 32.3 g/dL (32.0-36.0); Mean Corpuscular Volume 78.8 fL (80.0-100.0); Monocytes % (auto) 9.4 % (0.0-12.0); Neutrophils % (auto) 58.6 % (37.0-80.0); Nucleated Red Blood Cells % 0.1 %; Red Blood Cells 4.57 10^6/uL (4.0-5.20)
[2023-07-15 06:22] LABS: Alanine Aminotransferase 31 U/L (7-40); Albumin 3.3 g/dL (3.2-4.8); Alkaline Phosphatase 41 U/L (46-116); Anion Gap 9 (5-15); Aspartate Aminotransferase 20 U/L (13-40); BUN/Creatinine Ratio 21.2 (10.0-20.0); Bilirubin, Total 0.2 mg/dL (0.2-1.0); Blood Urea Nitrogen 18 mg/dL (9-23); Calcium 8.4 mg/dL (8.7-10.4); Carbon Dioxide 23 mmol/L (20-30); Chloride 108 mmol/L (98-107); Glucose 84 mg/dL (74-106); Magnesium 2.1 mg/dL (1.6-2.6); Potassium 3.7 mmol/L (3.5-5.1); Sodium 140 mmol/L (136-145); Total Protein 5.1 g/dL (5.7-8.2)
[2023-07-15] MEDS: cefTRIAXone 1GM/50ML D5W 50 ML IV SCH (08:24)
[2023-07-15] MEDS: GABAPENTIN 300 MG CAP PO SCH ×2 (08:25→21:30)
[2023-07-15] MEDS: ZINC SULFATE 220mg CAP or TAB PO SCH (08:25)
[2023-07-15] MEDS: DexAMETHasone SOD PHOS 10MG/1ML VIAL INJ IV SCH (08:25)
[2023-07-15] MEDS: PANTOPRAZOLE 40 MG TAB PO SCH (08:25)
[2023-07-15] MEDS: ASCORBIC ACID 500 MG TAB PO SCH ×2 (08:26→21:30)
[2023-07-15] MEDS: APIXABAN 5 MG TAB PO SCH ×2 (08:26→21:30)
[2023-07-15] MEDS: CHOLECALCIFEROL (VITD3) 2,000 UNIT CAP/TAB PO SCH (08:26)
[2023-07-15] MEDS: POTASSIUM CHL 20 Meq TABLET PO SCH (08:26)
[2023-07-15] MEDS: FUROSEMIDE 20 MG TAB PO SCH (08:27)
[2023-07-15] MEDS: SELEXIPAG PO SCH ×2 (08:40→20:54)
[2023-07-15] MEDS: REMDESIVIR 100mg 100 MG in SODIUM CHL 0.9% 230 ML IV SCH (15:00)
[2023-07-15] MEDS: OPSUMIT 10 MG PO SCH (20:54)
[2023-07-15] MEDS: TADALAFIL 20 MG PO SCH (22:00)
[2023-07-16] VITALS (18 sets, daily range): BP systolic 81–125; BP diastolic 44–72; PULSE 60–98; RESP 13–20; TEMP 97.8–98.3; O2SAT 85–98
[2023-07-16] MEDS: LORazepam 0.5 MG TAB PO PRN (01:21)
[2023-07-16 04:23] LABS: Basophils # (auto) 0 10 ^3/uL (0-0.2); Basophils % (auto) 0.3 % (0.0-2.0); Eosinophils # (auto) 0.1 10 ^3/uL (0-0.8); Eosinophils % (auto) 1.5 % (0.0-7.0); Hematocrit 37.2 % (36.0-46.0); Hemoglobin 12.1 g/dL (12.2-16.2); Lymphocytes # (auto) 1.5 10 ^3/uL (0.4-5.4); Lymphocytes % (auto) 29.9 % (10.0-50.0); Mean Corpuscular Hemoglobin 25.5 pg (28.0-32.0); Mean Corpuscular Hgb Conc. 32.4 g/dL (32.0-36.0); Mean Corpuscular Volume 78.6 fL (80.0-100.0); Monocytes # (auto) 0.5 10 ^3/uL (0-1.3); Neutrophils % (auto) 58.3 % (37.0-80.0); Nucleated Red Blood Cells % 0.1 %; Red Blood Cells 4.74 10^6/uL (4.0-5.20); White Blood Cell 5.2 10^3/uL (4.4-10.8)
[2023-07-16 04:35] LABS: Chloride 109 mmol/L (98-107); Potassium 3.9 mmol/L (3.5-5.1); Sodium 141 mmol/L (136-145)
[2023-07-16 04:36] LABS: Anion Gap 7 (5-15); Calcium 8.9 mg/dL (8.5-10.1); Carbon Dioxide 25 mmol/L (20-30)
[2023-07-16 04:41] LABS: BUN/Creatinine Ratio 22.2 (10.0-20.0); Blood Urea Nitrogen 20 mg/dL (9-23); Glucose 97 mg/dL (74-106)
[2023-07-16 04:43] LABS: Alanine Aminotransferase 35 U/L (7-40); Albumin 3.4 g/dL (3.2-4.8); Alkaline Phosphatase 43 U/L (46-116); Aspartate Aminotransferase 22 U/L (13-40); Bilirubin, Direct < 0.1 mg/dL (<0.3); Bilirubin, Total 0.3 mg/dL (0.2-1.0); Total Protein 5.2 g/dL (5.7-8.2)
[2023-07-16] MEDS: DexAMETHasone SOD PHOS 10MG/1ML VIAL INJ IV SCH (08:46)
[2023-07-16] MEDS: ASCORBIC ACID 500 MG TAB PO SCH (08:47)
[2023-07-16] MEDS: FUROSEMIDE 20 MG TAB PO SCH (08:47)
[2023-07-16] MEDS: cefTRIAXone 1GM/50ML D5W 50 ML IV SCH (08:47)
[2023-07-16] MEDS: PANTOPRAZOLE 40 MG TAB PO SCH (08:47)
[2023-07-16] MEDS: GABAPENTIN 300 MG CAP PO SCH ×2 (08:47→23:05)
[2023-07-16] MEDS: POTASSIUM CHL 20 Meq TABLET PO SCH (08:47)
[2023-07-16] MEDS: APIXABAN 5 MG TAB PO SCH ×2 (08:48→23:05)
[2023-07-16] MEDS: ZINC SULFATE 220mg CAP or TAB PO SCH (08:48)
[2023-07-16] MEDS: CHOLECALCIFEROL (VITD3) 2,000 UNIT CAP/TAB PO SCH (08:48)
[2023-07-16] MEDS: SELEXIPAG PO SCH ×2 (08:49→22:00)
[2023-07-16] MEDS: TADALAFIL 20 MG PO SCH (11:03)
[2023-07-16] MEDS: REMDESIVIR 100mg 100 MG in SODIUM CHL 0.9% 230 ML IV SCH (15:00)
[2023-07-16] MEDS: OPSUMIT 10 MG PO SCH (22:00)
[2023-07-17] VITALS (9 sets, daily range): BP systolic 91–111; BP diastolic 44–73; PULSE 67–93; RESP 15–19; TEMP 98–98.2; O2SAT 91–97
[2023-07-17 06:44] LABS: Basophils # (auto) 0 10 ^3/uL (0-0.2); Basophils % (auto) 0.3 % (0.0-2.0); Eosinophils # (auto) 0.1 10 ^3/uL (0-0.8); Hemoglobin 12.5 g/dL (12.2-16.2); Lymphocytes # (auto) 1.5 10 ^3/uL (0.4-5.4); Lymphocytes % (auto) 25.7 % (10.0-50.0); Monocytes # (auto) 0.5 10 ^3/uL (0-1.3); Neutrophils # (auto) 3.6 10 ^3/uL (1.6-8.6); Neutrophils % (auto) 62.9 % (37.0-80.0); White Blood Cell 5.7 10^3/uL (4.4-10.8)
[2023-07-17 06:47] LABS: Eosinophils % (auto) 1.6 % (0.0-7.0); Hematocrit 38.7 % (36.0-46.0); Mean Corpuscular Hemoglobin 25.3 pg (28.0-32.0); Mean Corpuscular Hgb Conc. 32.3 g/dL (32.0-36.0); Mean Corpuscular Volume 78.3 fL (80.0-100.0); Monocytes % (auto) 9.5 % (0.0-12.0); Red Blood Cells 4.94 10^6/uL (4.0-5.20); Red Cell Distribution Width 15.1 % (11.8-14.3)
[2023-07-17 07:05] LABS: Alanine Aminotransferase 29 U/L (7-40); Albumin 3.7 g/dL (3.2-4.8); Alkaline Phosphatase 45 U/L (46-116); Anion Gap 6 (5-15); Aspartate Aminotransferase 13 U/L (13-40); BUN/Creatinine Ratio 20.9 (10.0-20.0); Bilirubin, Total 0.3 mg/dL (0.2-1.0); Blood Urea Nitrogen 18 mg/dL (9-23); Calcium 8.7 mg/dL (8.7-10.4); Carbon Dioxide 25 mmol/L (20-30); Chloride 108 mmol/L (98-107); Glucose 86 mg/dL (74-106); Magnesium 2.2 mg/dL (1.6-2.6); Potassium 3.9 mmol/L (3.5-5.1); Sodium 139 mmol/L (136-145); Total Protein 5.8 g/dL (5.7-8.2)
[2023-07-17] MEDS: DexAMETHasone SOD PHOS 10MG/1ML VIAL INJ IV SCH (09:03)
[2023-07-17] MEDS: TADALAFIL 20 MG PO SCH (09:05)
[2023-07-17] MEDS: SELEXIPAG PO SCH ×2 (09:05→22:24)
[2023-07-17] MEDS: ZINC SULFATE 220mg CAP or TAB PO SCH (09:08)
[2023-07-17] MEDS: POTASSIUM CHL 20 Meq TABLET PO SCH (09:09)
[2023-07-17] MEDS: APIXABAN 5 MG TAB PO SCH ×2 (09:09→22:22)
[2023-07-17] MEDS: FUROSEMIDE 20 MG TAB PO SCH (09:10)
[2023-07-17] MEDS: GABAPENTIN 300 MG CAP PO SCH ×2 (09:10→22:22)
[2023-07-17] MEDS: PANTOPRAZOLE 40 MG TAB PO SCH (09:10)
[2023-07-17] MEDS: ASCORBIC ACID 500 MG TAB PO SCH (09:10)
[2023-07-17] MEDS: CHOLECALCIFEROL (VITD3) 2,000 UNIT CAP/TAB PO SCH (09:10)
[2023-07-17] MEDS ORDERED: TADALAFIL 20 MG PO SCH (10:00)
[2023-07-17 12:38] LABS: COVID19 ANTIGEN SOFIA FIA NEGATIVE (NEGATIVE)
[2023-07-17] MEDS: OPSUMIT 10 MG PO SCH (22:22)
[2023-07-18 05:00] VITALS: BP 99/56; PULSE 74; RESP 20; TEMP 98.4; O2SAT 88
[2023-07-18 08:00] VITALS: PULSE 67; PULSE 96; RESP 20; O2SAT 91
[2023-07-18 09:00] VITALS: BP 102/52; PULSE 62; RESP 20; TEMP 98.2; O2SAT 91
[2023-07-18] MEDS: SELEXIPAG PO SCH (10:00)
[2023-07-18] MEDS: TADALAFIL 20 MG PO SCH (10:00)
[2023-07-18] MEDS: DexAMETHasone SOD PHOS 10MG/1ML VIAL INJ IV SCH (10:41)
[2023-07-18] MEDS: ZINC SULFATE 220mg CAP or TAB PO SCH (10:43)
[2023-07-18] MEDS: FUROSEMIDE 20 MG TAB PO SCH (10:43)
[2023-07-18] MEDS: POTASSIUM CHL 20 Meq TABLET PO SCH (10:43)
[2023-07-18] MEDS: APIXABAN 5 MG TAB PO SCH (10:43)
[2023-07-18] MEDS: GABAPENTIN 300 MG CAP PO SCH (10:44)
[2023-07-18] MEDS: PANTOPRAZOLE 40 MG TAB PO SCH (10:44)
[2023-07-18] MEDS: ASCORBIC ACID 500 MG TAB PO SCH (10:44)
[2023-07-18] MEDS: CHOLECALCIFEROL (VITD3) 2,000 UNIT CAP/TAB PO SCH (10:44)
[2023-07-18] MEDS ORDERED: ZINC220C10 PO (11:09)
[2023-07-18] MEDS ORDERED: ASCO500T11 PO (11:09)
[2023-07-18 12:11] VITALS: O2SAT 95
[2023-07-18 13:00] VITALS: BP 102/62; PULSE 81; RESP 20; TEMP 98.6; O2SAT 93
[2023-07-18 16:05] VITALS: BP 102/52; PULSE 81; RESP 20; TEMP 98.6; O2SAT 93
== END 2023-07-18 17:00 | disposition home or self-care (01) | DRG 137 ==
LOC: ER 19:24 → EDUNIT# 19:24 → EDBD 19:24 → OVERFLOW 07-08 02:14 → DOU IN ICU 07-08 02:19 → OVERFLOW 07-08 02:19 → DOU IN ICU 07-13 04:10 → TELE-WESTW 07-16 13:28
PROVIDERS: ADMIT Internal Medicine Geriatric Medicine; ATTEND Internal Medicine Geriatric Medicine
PROC: 5A0935A Assistance with Respiratory Ventilation, Less than 24 Consecutive Hours, High Flow/Velocity Cannula (ICD-10-PCS; 2023-07-09)
PROC: 5A0935A Assistance with Respiratory Ventilation, Less than 24 Consecutive Hours, High Flow/Velocity Cannula (ICD-10-PCS; 2023-07-10)
PROC: XW033E5 Introduction of Remdesivir Anti-infective into Peripheral Vein, Percutaneous Approach, New Technology Group 5 (ICD-10-PCS; principal; 2023-07-12)
PROC: 05HB33Z Insertion of Infusion Device into Right Basilic Vein, Percutaneous Approach (ICD-10-PCS; 2023-07-16)
PROC: B54MZZA Ultrasonography of Right Upper Extremity Veins, Guidance (ICD-10-PCS; 2023-07-16)
DX: U07.1 COVID-19 (principal); J96.21 Acute and chronic respiratory failure with hypoxia; J12.82 Pneumonia due to coronavirus disease 2019; I27.20 Pulmonary hypertension, unspecified; I11.0 Hypertensive heart disease with heart failure; Z53.20 Procedure and treatment not carried out because of patient's decision for unspecified reasons; I50.9 Heart failure, unspecified; I48.91 Unspecified atrial fibrillation; I50.810 Right heart failure, unspecified; G47.33 Obstructive sleep apnea (adult) (pediatric); I27.21 Secondary pulmonary arterial hypertension; Z83.3 Family history of diabetes mellitus; Z71.6 Tobacco abuse counseling; Z95.0 Presence of cardiac pacemaker; Z86.711 Personal history of pulmonary embolism; Z98.51 Tubal ligation status; Z90.49 Acquired absence of other specified parts of digestive tract; Z23 Encounter for immunization
CPT/HCPCS: 36415; 36600; 71045; 71275; 80048; 80053; 80076; 81001; 82805; 83735; 83880; 84484; 85025; 85379; 85610; 85730; 87040; 87081; 87426; 87804; 93005; 93306; 93970; 94640; G0378; J1100